=== PATIENT | female | born 1965 | race Caucasian/White ===

== ENCOUNTER 2018-12-28 11:15 | Outpatient (REF) | payer BC, SELFPAY ==
--- NOTE | 2018-12-28 10:00 | PAPFT_PTH ---
PATIENT: SERVANDO SAMANIEGO LOC: [facility] U#:[id number] AGE/SX: 53/F ROOM: RE12/28/[address]: Joseph Carlisle MD : [id number] BED: DIS: 12/28/2018 SPEC #: [id number] RECD: 12/28/18 13:07 STATUS: MADHAVI REQ #: [id number] BETH: 12/28/18 10:[address]: Joseph Carlisle DEPT: [facility] Cytology RECD BY: Kimberli Gonsalves Tissues: 1 - CX/ENDOCX FOR PAP SMEARS Procedures: PAP THIN PREP/[facility] Screening HPV DNA PROBE Comments: [id number]
== END 2018-12-28 11:35 ==
LOC: LBN 11:15
PROVIDERS: PCP Family Medicine; Visit Provider Family Medicine
DX: Z12.4 Encounter for screening for malignant neoplasm of cervix (principal); Z11.51 Encounter for screening for human papillomavirus (HPV)
CPT/HCPCS: 88142; 87624

== ENCOUNTER 2019-01-08 00:49 | Outpatient (CLI) | payer BC, SELFPAY ==
--- NOTE | 2019-01-08 17:30 | DI.MAMMO_ITS ---
SYMPTOM/DIAGNOSIS: SCREENING, Z12.31 MAMMOGRAMS: Mammograms were interpreted according to the usual protocol including computer analysis with CAD system, tomosynthesis and C view imaging. Comparison is made with prior examinations. Breast density, Category B. No suspicious masses or microcalcifications are seen. There is no definite evidence of malignancy. IMPRESSION: Negative mammogram. Routine screening is recommended. Category 1. MQSA ASSESSMENT OF FINDINGS: Negative. Category 1. Patient will receive a letter notifying them of these results. BI-RADS category B. There are scattered areas of fibroglandular density.
== END 2019-01-08 01:09 ==
PROVIDERS: PCP Family Medicine; Visit Provider Family Medicine
DX: Z12.31 Encounter for screening mammogram for malignant neoplasm of breast (principal)
CPT/HCPCS: 77063; 77067

== ENCOUNTER 2020-03-13 18:59 | Outpatient (REF) | payer BC, SELFPAY ==
[2020-03-13 19:47] LABS: HGB 13.7 g/dL (12.0-15.5); Mean Corp. HGB Concentration 33.4 g/dL (32.0-36.0); Mean Corpuscular Hemoglobin 27.7 pg (27.0-33.0); Mean Corpuscular Volume 82.8 fL (80-95); Platelet Count 312 x1000/uL (130-400); RBC 4.95 m/cumm (4.00-5.20); RBC Distribution Width 14.5 % (11.7-14.6); White Blood Cell Count 6.47 k/cumm (4.4-10.8)
[2020-03-13 20:13] LABS: Anion Gap 11.2 mmol/L (3-11); BUN 14 mg/dL (7-18); CO2 25.8 mmol/L (21.0-32.0); CREATININE 0.92 mg/dL (0.55-1.02); Calcium 9.4 mg/dL (8.5-10.1); Calculated LDL 189 mg/dL (<100); Chloride 104 mmol/L (98-107); Cholesterol 281 mg/dL (<200); Glucose 97 mg/dL (74-106); HDL Cholesterol 73 mg/dL (40-60); Potassium 4.4 mmol/L (3.5-5.1); Sodium 141 mmol/L (136-145); TSH 1.61 uIU/mL (0.36-3.74); Triglyceride 99 mg/dL (<150)
== END 2020-03-13 19:19 ==
LOC: LBN 18:59
PROVIDERS: PCP Family Medicine; Visit Provider Family Medicine
DX: Z00.00 Encounter for general adult medical examination without abnormal findings (principal); Z13.220 Encounter for screening for lipoid disorders; Z13.29 Encounter for screening for other suspected endocrine disorder; Z13.228 Encounter for screening for other metabolic disorders
CPT/HCPCS: 80048; 80061; 85027; 84443

== ENCOUNTER 2020-05-21 01:38 | Outpatient (CLI) | payer BC, SELFPAY ==
--- NOTE | 2020-05-21 11:14 | DI.MAMMO_ITS ---
EXAM: MAMMO SCREENING CLINICAL HISTORY: screening TECHNIQUE: Mammograms were interpreted according to the usual protocol including computer analysis w [employer] CAD system, tomosynthesis and C-view imaging. COMPARISON: 2011 through 2019. FINDINGS: The breasts are composed of scattered fibroglandular densities, Breast Density category B. No suspicious masses or suspicious microcalcifications are seen. No skin thickening or abnormal axillary lymph nodes are seen. There has been no significant change from prior exams. IMPRESSION: BI-RADS Category 1, Negative mammogram Yearly screening mammography is recommended. Breast Density Category B, scattered fibroglandular densities. A negative radiographic report should not delay biopsy if a dominant or clinically suspicious mass is present. Up to ten percent of cancers are not identified on mammography. A negative report may reinforce clinical impression. Adenosis and dense breasts may obscure an underlying neoplasm. False positive reports average 6 to 10%. Patient will receive a letter notifying them of these results.
== END 2020-05-21 01:58 ==
PROVIDERS: Visit Provider Family Medicine
DX: Z12.31 Encounter for screening mammogram for malignant neoplasm of breast (principal); R92.2 Inconclusive mammogram
CPT/HCPCS: 77063; 77067